=== PATIENT | female | born 2000 | race Caucasian/White ===

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

== ENCOUNTER → 2019-06-14 | Outpatient (CLI) | payer BC | LOC: COL.RAD 14:15 | DX: N20.0 Calculus of kidney (principal) ==